=== PATIENT | male | born 1955 | race Caucasian/White ===

== ENCOUNTER → 2021-03-24 | Outpatient (CLI) | payer MEDICARE ==
--- NOTE | 2021-03-24 09:10 | REP ---
INDICATION: E78.5 HYPERLIPIDEMIA COMPARISON: None. TECHNIQUE: Shi scale and color Doppler evaluation using linear high frequency transducer Findings: FINDINGS: Two-dimensional shi scale and color images demonstrate normal arterial lumen with laminar flow and no appreciable narrowing. Color Doppler interrogation demonstrates normal arterial wave patterns and velocities with no significant spectral broadening. Normal flow direction is appreciated in the bilateral vertebral arteries. ICA peak systolic velocity: Right 70.5 cm/s; Left 61.3 cm/s ICA diastolic velocity: Right 19.1 cm/s; Left 17.2 cm/s ECA peak systolic velocity: Right 92.4 cm/s; Left 70.2 cm/s CCA peak systolic velocity: Right 104.5 cm/s; Left 104.7 cm/s ICA/CCA ratio: Right 0.7 cm/s; Left 0.6 cm/s IMPRESSION: No hemodynamically significant areas of narrowing or stenosis appreciated. Based on set standards narrowing falls within the normal range. <Electronically signed by Goyo Salter > 03/24/21 0906
== END ==
LOC: M RAD 08:03
PROVIDERS: ATTEND Internal Medicine
DX: E78.5 Hyperlipidemia, unspecified (principal)

== ENCOUNTER → 2021-05-24 | Outpatient (REF) | LOC: M LABSMTC 09:13 | PROVIDERS: ATTEND Pediatrics | DX: Z20.822 Contact with and (suspected) exposure to COVID-19 (principal) ==

== ENCOUNTER 2022-02-03 03:30 | Inpatient (IN) | payer MEDICARE ==
[~2022-02-03] VITALS: Ht 175.3 cm; Wt 75.4 kg
[2022-02-03 04:21] LABS: BASO % 0.2 % (0.0-1.0); HEMATOCRIT 44.8 % (42.0-52.0); HEMOGLOBIN 15.9 g/dl (13.5-17.5); LYMPH # 1.1 10^3/uL (1.5-5.0); LYMPH % 8.4 % (24.0-44.0); MEAN CORPUSCULAR HEMOGLOBIN 33.5 pg (27.0-33.0); MEAN CORPUSCULAR HGB CONC 35.5 g/dl (32.0-36.5); MEAN CORPUSCULAR VOLUME 94.3 fl (80.0-96.0); MONO # 0.6 10^3/uL (0.0-0.8); MONO % 4.7 % (2.0-8.0); NEUTROPHILS # 11.5 10^3/uL (1.5-8.5); NEUTROPHILS % 86.4 % (36.0-66.0); PLATELET COUNT, AUTOMATED 226 10^3/uL (150-450); RED BLOOD COUNT 4.75 10^6/uL (4.30-6.10); WHITE BLOOD COUNT 13.3 10^3/uL (4.0-10.0)
[2022-02-03 04:53] LABS: ALBUMIN 4.2 GM/DL (3.2-5.2); ALT/SGPT 23 U/L (12-78); AMYLASE 92 U/L (25-115); BILIRUBIN,DIRECT 0.4 MG/DL (0.0-0.2); BILIRUBIN,TOTAL 1.3 MG/DL (0.2-1.0); BLOOD UREA NITROGEN 16 MG/DL (7-18); CALCIUM LEVEL 9.7 MG/DL (8.8-10.2); CARBON DIOXIDE LEVEL 26 MEQ/L (21-32); CHLORIDE LEVEL 100 MEQ/L (98-107); GLOMERULAR FILTRATION RATE > 60.0 (>49); GLUCOSE, FASTING 152 MG/DL (70-100); LIPASE 149 U/L (73-393); POTASSIUM SERUM 4.2 MEQ/L (3.5-5.1); SODIUM LEVEL 136 MEQ/L (136-145); TOTAL PROTEIN 7.2 GM/DL (6.4-8.2)
[2022-02-03 04:56] LABS: CK-MB VALUE MASS < 1.0 NG/ML (<3.6); CPK CREATINE PHOSPHOKINASE 60 U/L (39-308); MB/CK RELATIVE INDEX 1.67 (< OR =4)
[2022-02-03] MEDS ORDERED: ONDANSETRON 4MG 2ML VIAL IV ONE (05:25)
[2022-02-03] MEDS ORDERED: MORPHINE 4 MG/ML 1ML VIAL/SYRINGE IV ONE (05:25)
[2022-02-03] MEDS ORDERED: ISOVUE-370 76% 100ML VIAL As Ordered ONE (05:34)
[2022-02-03] MEDS ORDERED: NS 1,000 ML IV ONE (07:35)
[2022-02-03] MEDS ORDERED: VITMTA PO (07:54)
[2022-02-03] MEDS ORDERED: VITA400T26 PO (07:54)
[2022-02-03] MEDS ORDERED: ASPI-161 PO (07:54)
[2022-02-03] MEDS ORDERED: VALS1TAB66 PO (07:54)
[2022-02-03] MEDS ORDERED: HOME MED LIST COMPLETE! XX SCH (07:55)
[2022-02-03 08:39] LABS: RSV AMPLIFICATION NEGATIVE (NEGATIVE)
[2022-02-03] MEDS ORDERED: ONDANSETRON 4MG 2ML VIAL IV PRN (10:00)
[2022-02-03] MEDS: ENOXAPARIN 40MG/0.4ML SYRINGE (J1650 PER 10MG) SC SCH (10:52)
[2022-02-03] MEDS: LR 1,000 ML IV SCH ×2 (13:35→21:26)
[2022-02-03] MEDS: KETOROLAC 30 MG/ML 1ML VIAL IV SCH ×2 (13:47→20:28)
[2022-02-03 15:15] VITALS: BP 155/85
[2022-02-03 18:00] VITALS: BP 155/85
[2022-02-03 20:55] VITALS: BP 159/80
[2022-02-04 02:00] VITALS: BP 131/66
[2022-02-04] MEDS: KETOROLAC 30 MG/ML 1ML VIAL IV SCH ×3 (02:26→15:00)
[2022-02-04] MEDS: LR 1,000 ML IV SCH ×3 (05:39→22:23)
[2022-02-04 06:00] VITALS: BP 130/66
[2022-02-04 06:00] LABS: HEMATOCRIT 37.9 % (42.0-52.0); MEAN CORPUSCULAR HEMOGLOBIN 33.2 pg (27.0-33.0); MEAN CORPUSCULAR HGB CONC 34.8 g/dl (32.0-36.5); MEAN CORPUSCULAR VOLUME 95.2 fl (80.0-96.0); PLATELET COUNT, AUTOMATED 173 10^3/uL (150-450); RED BLOOD COUNT 3.98 10^6/uL (4.30-6.10); WHITE BLOOD COUNT 9.4 10^3/uL (4.0-10.0)
[2022-02-04 06:18] LABS: HEMOGLOBIN 13.2 g/dl (13.5-17.5)
[2022-02-04 07:07] LABS: BLOOD UREA NITROGEN 20 MG/DL (7-18); CALCIUM LEVEL 8.7 MG/DL (8.8-10.2); CARBON DIOXIDE LEVEL 29 MEQ/L (21-32); CHLORIDE LEVEL 106 MEQ/L (98-107); CREATININE FOR GFR 0.94 MG/DL (0.70-1.30); GLOMERULAR FILTRATION RATE > 60.0 (>49); GLUCOSE, FASTING 103 MG/DL (70-100); MAGNESIUM LEVEL 2.4 MG/DL (1.8-2.4); PHOSPHORUS LEVEL 3.4 MG/DL (2.5-4.9); POTASSIUM SERUM 3.7 MEQ/L (3.5-5.1); SODIUM LEVEL 141 MEQ/L (136-145)
[2022-02-04] MEDS: ENOXAPARIN 40MG/0.4ML SYRINGE (J1650 PER 10MG) SC SCH (09:01)
[2022-02-04 10:00] VITALS: BP 130/66
[2022-02-04 14:00] VITALS: BP 134/65
[2022-02-04] MEDS ORDERED: KETOROLAC 30 MG/ML 1ML VIAL IV PRN (17:30)
[2022-02-04] MEDS ORDERED: LR 1,000 ML IV ONE (17:30)
[2022-02-04 18:00] VITALS: BP 136/56
[2022-02-04 22:00] VITALS: BP 133/62
[2022-02-05] VITALS (7 sets, daily range): BP systolic 103–153; BP diastolic 56–73
[2022-02-05 05:56] LABS: HEMATOCRIT 35.2 % (42.0-52.0); MEAN CORPUSCULAR HEMOGLOBIN 32.9 pg (27.0-33.0); MEAN CORPUSCULAR HGB CONC 34.1 g/dl (32.0-36.5); MEAN CORPUSCULAR VOLUME 96.4 fl (80.0-96.0); PLATELET COUNT, AUTOMATED 150 10^3/uL (150-450); RED BLOOD COUNT 3.65 10^6/uL (4.30-6.10); WHITE BLOOD COUNT 8.6 10^3/uL (4.0-10.0)
[2022-02-05] MEDS: LR 1,000 ML IV SCH ×3 (06:01→21:35)
[2022-02-05 06:39] LABS: BLOOD UREA NITROGEN 22 MG/DL (7-18); CALCIUM LEVEL 8.6 MG/DL (8.8-10.2); CARBON DIOXIDE LEVEL 28 MEQ/L (21-32); CHLORIDE LEVEL 105 MEQ/L (98-107); CREATININE FOR GFR 0.82 MG/DL (0.70-1.30); GLOMERULAR FILTRATION RATE > 60.0 (>49); GLUCOSE, FASTING 93 MG/DL (70-100); MAGNESIUM LEVEL 2.3 MG/DL (1.8-2.4); PHOSPHORUS LEVEL 3.3 MG/DL (2.5-4.9); POTASSIUM SERUM 3.6 MEQ/L (3.5-5.1); SODIUM LEVEL 142 MEQ/L (136-145)
[2022-02-05] MEDS: ENOXAPARIN 40MG/0.4ML SYRINGE (J1650 PER 10MG) SC SCH (08:39)
[2022-02-06 02:00] VITALS: BP 102/56
[2022-02-06 05:30] VITALS: BP 122/70
[2022-02-06 05:57] LABS: HEMATOCRIT 36.6 % (42.0-52.0); HEMOGLOBIN 12.9 g/dl (13.5-17.5); MEAN CORPUSCULAR HEMOGLOBIN 33.4 pg (27.0-33.0); MEAN CORPUSCULAR HGB CONC 35.2 g/dl (32.0-36.5); MEAN CORPUSCULAR VOLUME 94.8 fl (80.0-96.0); PLATELET COUNT, AUTOMATED 159 10^3/uL (150-450); RED BLOOD COUNT 3.86 10^6/uL (4.30-6.10); WHITE BLOOD COUNT 8.3 10^3/uL (4.0-10.0)
[2022-02-06 06:21] LABS: BLOOD UREA NITROGEN 14 MG/DL (7-18); CARBON DIOXIDE LEVEL 29 MEQ/L (21-32); CHLORIDE LEVEL 103 MEQ/L (98-107); GLOMERULAR FILTRATION RATE > 60.0 (>49); GLUCOSE, FASTING 102 MG/DL (70-100); MAGNESIUM LEVEL 2.1 MG/DL (1.8-2.4); PHOSPHORUS LEVEL 3.1 MG/DL (2.5-4.9); POTASSIUM SERUM 3.4 MEQ/L (3.5-5.1); SODIUM LEVEL 138 MEQ/L (136-145)
[2022-02-06] MEDS ORDERED: POTASSIUM CHLORIDE 10MEQ SR TABLET PO ONE (06:25)
[2022-02-06 07:31] LABS: MAGNESIUM LEVEL 2.1 MG/DL (1.8-2.4); POTASSIUM SERUM 3.3 MEQ/L (3.5-5.1)
[2022-02-06] MEDS: ENOXAPARIN 40MG/0.4ML SYRINGE (J1650 PER 10MG) SC SCH (09:16)
[2022-02-06] MEDS ORDERED: MIRA3350 PO (10:08)
== END 2022-02-06 12:00 | disposition home or self-care (01) | DRG 390 ==
LOC: M ED 03:30 → M ED INP 09:56 → ENRESERV 14:14 → M MSPAV 15:08
PROVIDERS: ADMIT Internal Medicine; ATTEND Internal Medicine
DX: K56.600 Partial intestinal obstruction, unspecified as to cause (principal); D72.829 Elevated white blood cell count, unspecified; K57.90 Diverticulosis of intestine, part unspecified, without perforation or abscess without bleeding; I10 Essential (primary) hypertension; F17.200 Nicotine dependence, unspecified, uncomplicated; Z79.82 Long term (current) use of aspirin; Z79.899 Other long term (current) drug therapy

== ENCOUNTER → 2022-02-19 | Outpatient (CLI) | payer MEDICARE ==
[~2022-02-19] MED LIST: ASPI-161 PO; E-Z-GAS II EFFERVESCENT PACKET (SODIUM BICARB./CITRIC ACID/SIMETHICONE) As Ordered ONE; E-Z-HD 98% w/w 340GM SUSP BTL As Ordered ONE; E-Z-PAQUE 96% w/w SUSP 176GM BTL As Ordered ONE; MIRA3350 PO; VALS1TAB66 PO; VITA400T26 PO; VITMTA PO
== END ==
LOC: M RAD 07:40
PROVIDERS: ATTEND Internal Medicine
DX: R10.13 Epigastric pain (principal)